=== PATIENT | female | born 1965 | race Caucasian/White ===

== ENCOUNTER → 2023-10-25 07:33 | Outpatient (REF) | payer BC, SELFPAY | LOC: WDC 07:33 | PROVIDERS: ATTENDING PHYSICIAN Family Medicine | DX: Z12.31 Encounter for screening mammogram for malignant neoplasm of breast (principal) | CPT/HCPCS: 77063; 77067 ==

== ENCOUNTER 2023-11-06 17:24 | Emergency (ER) | payer BC, SELFPAY ==
[2023-11-06 17:30] VITALS: BP 135/98
[2023-11-06 17:54] LABS: % Basophils 0.8 % (0-2); % Eosinophils 12.5 % (0-6); % Immature Granulocytes 0.2 % (0-0.5); % Lymphocytes 33.4 % (20.5-51.1); % Monocytes 5.7 % (1.7-9.3); % Neutrophils 47.4 % (42.2-75.2); Absolute Basophils 0.1 10^3/uL (0-0.2); Absolute Eosinophils 1.5 10^3/uL (0-0.7); Absolute Lymphocytes 4.1 10^3/uL (1.2-3.4); Absolute Monocytes 0.7 10^3/uL (0.1-0.6); Absolute Neutrophils 5.8 10^3/uL (1.4-6.5); Hematocrit 42.1 % (37.0-47.0); Hemoglobin 13.5 g/dL (12.0-16.0); Mean Corp Hgb Conc. 32.1 g/dL (33.0-37.0); Mean Corpuscular Hgb 31.4 pg (27.0-31.0); Mean Corpuscular Volume 97.9 fL (81.0-99.0); Mean Platelet Volume 11.1 fL (7.4-10.4); Nucleated Red Blood Cells % 0 %; Platelet Count 270 10^3/uL (130-400); Red Cell Dist. Width 13.8 % (11.5-14.5); White Blood Cell Count 12.2 10^3/uL (4.8-10.8)
[2023-11-06 18:06] LABS: ALT (SGPT) 19 U/L (0-35); AST (SGOT) 32 U/L (14-36); Albumin 4.6 g/dl (3.5-5.0); Alkaline Phosphatase 111 U/L (38-126); Blood Urea Nitrogen 13 mg/dl (7-17); Calcium 9.7 mg/dl (8.4-10.2); Carbon Dioxide 27 mmol/L (22-30); Chloride 108 mmol/L (98-107); Glucose 97 mg/dl (70-99); Lipase 105 U/L (23-300); Potassium 4.1 mmol/L (3.5-5.1); Sodium 142 mmol/L (135-145); Total Bilirubin 0.8 mg/dl (0.2-1.3); Total Protein 7.8 g/dl (6.3-8.2); eGFR > 60.00
[2023-11-06 19:40] VITALS: BP 141/82; BMI 25.0
[2023-11-06] MEDS: OMNIPAQUE 50 ML PO (19:48)
[2023-11-06] MEDS: NSS 1000 IV (19:48)
[2023-11-06 21:42] LABS: Urine Albumin Negative (Neg - Trace); Urine Bilirubin Negative (Negative); Urine Character Clear (Clear); Urine Color Yellow; Urine Glucose Negative (Negative); Urine Ketone Negative (Negative); Urine Leukocyte 2+ (Negative); Urine Nitrite Negative (Negative); Urine Occult Blood Negative (Negative); Urine Specific Gravity 1.015 (<1.030); Urine Urobilinogen Negative (Neg - 1+)
[2023-11-06 21:53] LABS: Urine Bacteria Moderate (Negative); Urine Red Blood Cell 0-2 /HPF (0-2); Urine White Cell 26-30 /HPF (0-5)
[2023-11-06 22:20] VITALS: BP 122/62
[2023-11-06 23:06] VITALS: BP 126/61
--- NOTE | 2023-11-06 23:18 | ED.GENMED ---
History of Present Illness
General
Chief Complaint: Abdominal Symptoms
Source: patient
Exam Limitations: none
Time Seen by Provider: 11/06/23 19:12
Nursing documentation reviewed up to this point in time: agreed with
History of Present Illness
History of Present Illness:
Patient to ED with complaint of diarrhea, lower abd pain, bloating. Sttes she was placed on Crestor 1 mos ago and this is whenher symptoms began. She stopped crestor after 2 weeks but her symptoms persisted. Denies fever/chills, n/v. No prior
history of same. Brought self to ED for eval.
Past History
Past History
ED Past Medical History: GERD and Other (hiatal hernia)
ED Past Surgical History: Orthopedic
Social History
Tobacco: Non-smoker
Alcohol: Occasional
Drug: None
Review of Systems
Review of Systems
Allergies reviewed?: Yes
All Other Systems: ROS reviewed and negative except as documented in HPI and ROS
Constitutional: Reports no symptoms
EENT: Reports no symptoms
Respiratory: Reports no symptoms
Cardiac: Reports no symptoms
ABD/GI: Reports abdominal pain and diarrhea
: Reports no symptoms
Musculoskeletal: Reports no symptoms
Skin: Reports no symptoms
Neurological: Reports no symptoms
Psychiatric: Reports no symptoms
Phy Exam
General Physical Exam
General Presentation: well appearing and no apparent distress
General age: appears stated age
General Skin: warm and dry
General Habitus: normal
General Mental: alert
Cardiovascular Exam
Cardiovascular Exam: regular rate/rhythm and no edema
Pulmonary Exam
Pulmonary Exam: lungs clear and no respiratory distress
Gastrointestinal Exam
Gastrointestinal Exam: normal bowel sounds, soft, no organomegaly, non distended and no cva tenderness
Palpation: generalized: Mild tenderness
Musculoskeletal Exam
Musculoskeletal Exam: full ROM and neuro vasc intact
Skin Exam
Skin Exam: normal color, warm/dry and no rash
Psychiatric Exam
Psychiatric Exam: normal mood/affect
Course
Orders/Labs/Results
Orders:
Orders
11/06/23 17:45
Complete Blood Count/With Diff Urgent
Comprehensive Metabolic Panel Urgent
Lipase Urgent
11/06/23 19:24
CT Abd/pel W Iv And Oral Contr Urgent
Comment:
Reason For Exam: LLQ abd pain vomiting, diarrhea
Iohexol [Omnipaque] See Protocol PO NOW STA
11/06/23 19:25
0.9% Sodium Chloride 1000 ml [Nss] 1,000 ml IV BOLUS
11/06/23 21:33
Urinalysis Reflex To Culture Urgent
Date Specimen was Collected: 11/06/23
Time Specimen was Collected: 19:33
Urine Microscopic Reflex Cult Urgent
Urine Culture Urgent
OPAL Source: U
Specimen Description:
Date Specimen was Collected: 11/06/23
Time Specimen was Collected: 19:33
Abnormal Lab Results
11/06/23 11/06/23
17:45 21:33
WBC 12.2 H 10^3/uL
(4.8-10.8)
MCH 31.4 H pg
(27.0-31.0)
MCHC 32.1 L g/dL
(33.0-37.0)
MPV 11.1 H fL
(7.4-10.4)
Absolute Lymphs (auto) 4.1 H 10^3/uL
(1.2-3.4)
Absolute Monos (auto) 0.7 H 10^3/uL
(0.1-0.6)
Absolute Eos (auto) 1.5 H 10^3/uL
(0-0.7)
Eosinophils % 12.5 H %
(0-6)
Chloride 108 H mmol/L
(98-107)
Leukocyte Esterase Rfl 2+ A
(Negative)
Urine WBC (Reflex) 26-30 A /HPF
(0-5)
Urine Bacteria (Reflex) Moderate A
(Negative)
11/06/23 17:45
11/06/23 17:45
Vital Signs
Initial and Last Documented VS:
Initial Vital Signs
Temp Pulse Resp BP Pulse Ox
98.4 F 94 18 135/98 95
11/06/23 17:30 11/06/23 17:30 11/06/23 17:30 11/06/23 17:30 11/06/23 17:30
Last Documented Vital Signs
Temp Pulse Resp BP Pulse Ox
98.4 F 68 16 126/61 97
11/06/23 17:30 11/06/23 23:06 11/06/23 19:40 11/06/23 23:06 11/06/23 19:40
*Radiology
Radiology exam reviewed: radiology read reviewed
*Pulse Oximetry
Patient hypoxic: no
*Critical Care Note
Total Time (30-74mins, 75-104mins- exclusive of procedures): Not Applicable
ED Attending Note
-
Portions of this chart may have been created with voice recognition software.� Occasional wrong word or��sound alike� substitutions may have occurred due to the inherent limitations of voice recognition software.
Discharge Plan
Departure
Patient Disposition: Home (Routine Discharge)
Date of Disposition: 11/06/23
Time of Disposition: 22:32
Patient with high blood pressure during this ER visit?: No
Condition: Good
Covid-19: Not Applicable
Discharge Problem:
Diarrhea
Instructions: Diarrhea in teens and adults
Referrals:
Daniel Allen MD [Active] -
Activity Restrictions/Additional Instructions:
Follow up with your family doctor in the AM. Call and schedule your appointment with the cylinder sander operator.
Interventions
Interventions:
*Risk Screen - Suicide Last Done: 11/06/23 17:30
*General Assessment Last Done: 11/06/23 17:30
*Neglect/Abuse Screening Last Done: 11/06/23 17:30
ED- Fall Risk Assessment Last Done: 11/06/23 20:00
*Nursing Disposition Last Done: 11/06/23 23:06
LZ-Sfovul-Otatkfhonf Assessment Last Done: 11/06/23 20:00
Discharge Date and Time
Discharge Date/Time: 11/06/23 23:07
Print Language: MOROCCAN
== END 2023-11-06 23:07 | disposition home or self-care (01) ==
LOC: EMR 17:24
PROVIDERS: Nurse Practitioner; EMERGENCY PHYSICIAN Student in an Organized Health Care Education/Training Program; FAMILY PHYSICIAN Family Medicine
DX: R19.7 Diarrhea, unspecified (principal); R10.30 Lower abdominal pain, unspecified; R14.0 Abdominal distension (gaseous); K21.9 Gastro-esophageal reflux disease without esophagitis; K44.9 Diaphragmatic hernia without obstruction or gangrene; Z86.718 Personal history of other venous thrombosis and embolism; Z88.2 Allergy status to sulfonamides
CPT/HCPCS: 99285; 96360; 74177; 80053; 81003; 81015; 83690; 85025; 87086; Q9967

== ENCOUNTER → 2024-12-23 14:15 | Outpatient (REF) | payer BC, SELFPAY | LOC: WDC 14:15 | PROVIDERS: ATTENDING PHYSICIAN Family Medicine | DX: Z12.31 Encounter for screening mammogram for malignant neoplasm of breast (principal) | CPT/HCPCS: 77063; 77067 ==